=== PATIENT | female | born 1960 | race Caucasian/White ===

== ENCOUNTER → 2017-08-06 | Day surgery (SDC) | payer OTHER ==
[~2017-08-06] MED LIST: FENTANYL CITRATE/PF 100MCG/2 ML INJ ONE; FLUOXETINE HCL10 MG PO; GABAPENTIN800 MG PO; IBUPROFEN400 MG PO; LIDOCAINE HCL 2% LOCAL INJ 5 ML SDV VIAL INJ ONE; MIDAZOLAM HCL 2 MG/2 ML VIAL ONE; PERPHENAZINE8 MG PO; PROPOFOL IV EMULSION 10 MG/ML 50 ML VIAL ONE; TOPAMAX200 MG PO; TRAZODONE HCL100 MG PO; TYLENOL EXTRA500 MG PO
--- OUTSIDE RECORDS SUMMARY | 2017-08-06 09:30 | XMS REPORT | Clinical Summary ---
Author Author [facility] Address Unknown Phone Unavailable Care Team Providers Care Net Maker Name Role Phone Peewee Ling MD PCP Allergies No Known Allergies Current Medications Prescription Sig. Disp. Refills Start End Date Status Date topiramate (TOPAMAX) 200 Take 200 mg by mouth 2 Active MG tablet (two) times a day. Active Problems Not on file Encounters Date Type Specialty Care Team Description 07/02/2017 Emergency Emergency Medicine Deja Short MD Cyst of right ovary (Primary Dx); Right upper quadrant abdominal pain; Pelvic pain in female after 08/05/2016 Social History Tobacco Use Types Packs/Day Years Used Date Current Some Day Smoker Alcohol Use Drinks/Week oz/Week Comments No Sex Assigned at Date Recorded Not on file Last Filed Vital Signs Vital Sign Reading Time Taken Blood Pressure 128/60 07/02/2017 8:48 PM CDT Pulse 70 07/02/2017 8:48 PM CDT Temperature 36.7 C (98 F) 07/02/2017 8:48 PM CDT Respiratory Rate 18 07/02/2017 8:48 PM CDT Oxygen Saturation 99% 07/02/2017 8:48 PM CDT Inhaled Oxygen - - Concentration Weight - - Height 172.7 cm (5' 8") 07/02/2017 1:41 PM CDT Body Mass Index - - Plan of Treatment Health Maintenance Due Date Last Done Comments CERVICAL CANCER SCREENING 1979 BREAST CANCER SCREENING 02/29/2008 COLON CANCER SCREENING 02/29/2008 SHINGRIX VACCINE (#1) 02/29/2008 INFLUENZA VACCINE 10/02/2017 Results * US Pelvic Transabdominal (07/02/2017 7:01 PM) Specimen Performing Laboratory [facility] [address] [place] [address] Narrative EXAMINATION:US PELVIC TRANSVAGINAL, US PELVIC TRANSABDOMINAL CLINICAL HISTORY:Rt pelvic pain COMPARISON:None. TECHNIQUE:Transabdominal and endovaginal sonographic images of the pelvis were obtained. Grayscale, color Doppler, and spectral waveform analysis of the ovarian vessels was performed. FINDINGS: The uterus measures 6.0 x 3.2 x 4.1 cm. The endometrial stripe measures 0.4 cm. The right ovary measures 2.8 x 2.2 x 2.5 cm . Normal Doppler flow was present. The left ovary measures 2.0 x 1.3 x 1.2 cm.. Normal Doppler flow was present. TRANSVAGINAL IMAGING: The uterus does not demonstrate any masses. Endometrium is not enlarged. The right ovary has a 2.2 cm cyst present within the right ovary. Blood flow is present to the right ovary. The left ovary is unremarkable. There is blood flow present to the left ovary. IMPRESSION: 1. The uterus does not demonstrate any masses. 2. The endometrium is not enlarged. 3. There is a 2.2 cm cyst seen within the right ovary. 4. There is no evidence of any ovarian torsion. [facility]-[id number] Procedure Note [facility], Radiology Results Incoming - 07/02/2017 7:17 PM CDT EXAMINATION: US PELVIC TRANSVAGINAL, US PELVIC TRANSABDOMINAL CLINICAL HISTORY: Rt pelvic pain COMPARISON: None. TECHNIQUE:Transabdominal and endovaginal sonographic images of the pelvis were obtained. Grayscale, color Doppler, and spectral waveform analysis of the ovarian vessels was performed. FINDINGS: The uterus measures 6.0 x 3.2 x 4.1 cm. The endometrial stripe measures 0.4 cm. The right ovary measures 2.8 x 2.2 x 2.5 cm . Normal Doppler flow was present. The left ovary measures 2.0 x 1.3 x 1.2 cm.. Normal Doppler flow was present. TRANSVAGINAL IMAGING: The uterus does not demonstrate any masses. Endometrium is not enlarged. The right ovary has a 2.2 cm cyst present within the right ovary. Blood flow is present to the right ovary. The left ovary is unremarkable. There is blood flow present to the left ovary. IMPRESSION: 1. The uterus does not demonstrate any masses. 2. The endometrium is not enlarged. 3. There is a 2.2 cm cyst seen within the right ovary. 4. There is no evidence of any ovarian torsion. [facility]-[id number] * US Pelvic Transvaginal (07/02/2017 7:01 PM) Specimen Performing Laboratory [facility] [address] [place] [address] Narrative EXAMINATION:US PELVIC TRANSVAGINAL, US PELVIC TRANSABDOMINAL CLINICAL HISTORY:Rt pelvic pain COMPARISON:None. TECHNIQUE:Transabdominal and endovaginal sonographic images of the pelvis were obtained. Grayscale, color Doppler, and spectral waveform analysis of the ovarian vessels was performed. FINDINGS: The uterus measures 6.0 x 3.2 x 4.1 cm. The endometrial stripe measures 0.4 cm. The right ovary measures 2.8 x 2.2 x 2.5 cm . Normal Doppler flow was present. The left ovary measures 2.0 x 1.3 x 1.2 cm.. Normal Doppler flow was present. TRANSVAGINAL IMAGING: The uterus does not demonstrate any masses. Endometrium is not enlarged. The right ovary has a 2.2 cm cyst present within the right ovary. Blood flow is present to the right ovary. The left ovary is unremarkable. There is blood flow present to the left ovary. IMPRESSION: 1. The uterus does not demonstrate any masses. 2. The endometrium is not enlarged. 3. There is a 2.2 cm cyst seen within the right ovary. 4. There is no evidence of any ovarian torsion. [facility]-[id number] Procedure Note Interface, Radiology Results Incoming - 07/02/2017 7:17 PM CDT EXAMINATION: US PELVIC TRANSVAGINAL, US PELVIC TRANSABDOMINAL CLINICAL HISTORY: Rt pelvic pain COMPARISON: None. TECHNIQUE:Transabdominal and endovaginal sonographic images of the pelvis were obtained. Grayscale, color Doppler, and spectral waveform analysis of the ovarian vessels was performed. FINDINGS: The uterus measures 6.0 x 3.2 x 4.1 cm. The endometrial stripe measures 0.4 cm. The right ovary measures 2.8 x 2.2 x 2.5 cm . Normal Doppler flow was present. The left ovary measures 2.0 x 1.3 x 1.2 cm.. Normal Doppler flow was present. TRANSVAGINAL IMAGING: The uterus does not demonstrate any masses. Endometrium is not enlarged. The right ovary has a 2.2 cm cyst present within the right ovary. Blood flow is present to the right ovary. The left ovary is unremarkable. There is blood flow present to the left ovary. IMPRESSION: 1. The uterus does not demonstrate any masses. 2. The endometrium is not enlarged. 3. There is a 2.2 cm cyst seen within the right ovary. 4. There is no evidence of any ovarian torsion. [facility]-[id number] * US Gallbladder (07/02/2017 6:23 PM) Specimen Performing Laboratory [facility] [address] [place] [address] Narrative EXAMINATION:US GALLBLADDER CLINICAL HISTORY:Abdominal pain COMPARISON:None. FINDINGS: Gallbladder: The gallbladder is without evidence of calculi. The gallbladder wall is not thickened and there is no pericholecystic fluid. CBD:5 mm , within normal limits. Portal vein: The portal vein demonstrates normal hepatopetal flow. The portal vein measures 1.1 cm, within normal limits. IMPRESSION: Negative gallbladder ultrasound examination. [facility]-[id number] Procedure Note Interface, Radiology Results [facility] - 07/02/2017 6:29 PM CDT EXAMINATION: US GALLBLADDER CLINICAL HISTORY: Abdominal pain COMPARISON: None. FINDINGS: Gallbladder: The gallbladder is without evidence of calculi. The gallbladder wall is not thickened and there is no pericholecystic fluid. CBD: 5 mm , within normal limits. Portal vein: The portal vein demonstrates normal hepatopetal flow. The portal vein measures 1.1 cm, within normal limits. IMPRESSION: Negative gallbladder ultrasound examination. [id number] * CT Abdomen Pelvis W Contrast (07/02/2017 4:51 PM) Specimen Performing Laboratory [facility] [address] [place] [address] Narrative EXAMINATION:CT ABDOMEN PELVIS W CONTRAST CLINICAL HISTORY:Rt pelvic pain TECHNIQUE: Multiple axial CT images of the abdomen and pelvis are obtained with the use of intravenous contrast. Coronal and sagittal 3-D reconstructions are obtained. CT scans are performed using radiation dose reduction techniques.Technical factors are evaluated and adjusted to ensure appropriate moderation of exposure. Automated dose management technology is applied to adjust radiation exposure while achieving a diagnostic quality image. COMPARISON:None. FINDINGS: Visualized lower lung zones are clear. The gallbladder does not have any wall thickening. There is no pericholecystic fluid. The liver has multiple simple cysts present. The largest cyst measures 2.8 cm. A second cyst measures 1.1 cm. There are no solid masses seen within the liver. The CT appearance of the liver, spleen, adrenal glands and pancreas is unremarkable. The abdominal aorta has no aneurysmal dilatation. There is no retroperitoneal adenopathy. The kidneys do not have any solid renal mass or hydronephrosis. CT Pelvis: There is no evidence of any pneumoperitoneum. Stomach does not have any wall thickening. There is no bowel obstruction nor any dilated loops of bowel. Surgical clips are seen within the right lower quadrant. The uterus is present. There is a 1.9 cm right ovarian cyst present. The bladder does not demonstrate any masses. There is no inguinal hernia. The colon does not have any focal inflammatory change. There is no bowel wall thickening. Small bowel is not dilated. IMPRESSION: 1. There is a 1.9 cm right ovarian cyst present. 2. There is no bowel obstruction nor any dilated loops of bowel. 3. The colon does not have any focal inflammatory change. 4. There is no acute abnormality. [facility]-[id number] Procedure Note Interface, Radiology Results Incoming - 07/02/2017 5:22 PM CDT EXAMINATION: CT ABDOMEN PELVIS W CONTRAST CLINICAL HISTORY: Rt pelvic pain TECHNIQUE: Multiple axial CT images of the abdomen and pelvis are obtained with the use of intravenous contrast. Coronal and sagittal 3-D reconstructions are obtained. CT scans are performed using radiation dose reduction techniques. Technical factors are evaluated and adjusted to ensure appropriate moderation of exposure. Automated dose management technology is applied to adjust radiation exposure while achieving a diagnostic quality image. COMPARISON: None. FINDINGS: Visualized lower lung zones are clear. The gallbladder does not have any wall thickening. There is no pericholecystic fluid. The liver has multiple simple cysts present. The largest cyst measures 2.8 cm. A second cyst measures 1.1 cm. There are no solid masses seen within the liver. The CT appearance of the liver, spleen, adrenal glands and pancreas is unremarkable. The abdominal aorta has no aneurysmal dilatation. There is no retroperitoneal adenopathy. The kidneys do not have any solid renal mass or hydronephrosis. CT Pelvis: There is no evidence of any pneumoperitoneum. Stomach does not have any wall thickening. There is no bowel obstruction nor any dilated loops of bowel. Surgical clips are seen within the right lower quadrant. The uterus is present. There is a 1.9 cm right ovarian cyst present. The bladder does not demonstrate any masses. There is no inguinal hernia. The colon does not have any focal inflammatory change. There is no bowel wall thickening. Small bowel is not dilated. IMPRESSION: 1. There is a 1.9 cm right ovarian cyst present. 2. There is no bowel obstruction nor any dilated loops of bowel. 3. The colon does not have any focal inflammatory change. 4. There is no acute abnormality. [facility]-[id number] * Estimated GFR (07/02/2017 3:28 PM) Component Value Ref Range GFR Non Af Amer 86 mL/min/1.73 m2 GFR Af Amer >90 mL/min/1.73 m2 Comment: Chronic kidney disease: <60 mL/min/1.73m2 Kidney failure: <15 mL/min/1.73m2 The estimated GFR is calculated from the IDMS-traceable Modification of Diet in Renal Disease Equation. The accuracy of the calculation is poor when the creatinine is normal. Calculated values >90 mL/min/1.73m2 are not reported. This equation has not been validated in children (<18 years), women, the elderly (>70 years), or ethnic groups other than Caucasians and Americans. Specimen Performing Laboratory Plasma specimen [facility] [place] [address] * Urinalysis (07/02/2017 3:28 PM) Component Value Ref Range Glucose, UA Negative Negative Bilirubin, UA Negative Negative Ketones, UA Negative Negative Specific gravity, UA 1.010 1.001 - 1.035 Blood, UA Negative Negative pH, UA 5.0 5.0 - 8.5 Protein, UA Negative Negative Urobilinogen, UA <2.0 <2.0 Nitrite, UA Negative Negative Leukocyte esterase, UA Negative Negative Color, UA Bright Yellow Appearance, UA Clear Specimen Performing Laboratory Urine [facility] [place] [address] * Gram stain (07/02/2017 3:28 PM) Component Value Ref Range Gram stain result No WBC's or organisms seen. Comment: Specimen Information Specimen Source: Urine Specimen Site: Urine, clean catch Specimen Performing Laboratory Urine - Urine, clean [facility] catch [address] [facility] [place] [address] * CBC with platelet and differential (07/02/2017 3:28 PM) Component Value Ref Range WBC 5.39 4.50 - 11.00 k/uL RBC 3.88 (L) 4.20 - 5.50 m/uL HGB 12.6 12.0 - 16.0 g/dL HCT 36.7 (L) 37.0 - 47.0 % MCV 94.6 82.0 - 100.0 fL MCH 32.5 27.0 - 34.0 pg MCHC 34.3 31.0 - 37.0 g/dL RDW - SD 41.9 37.0 - 55.0 fL MPV 10.3 8.8 - 13.2 fL Platelet count 174 150 - 400 k/uL Neutrophils 67.8 39.0 - 69.0 % Lymphocytes 23.9 (L) 25.0 - 45.0 % Monocytes 7.2 0.0 - 10.0 % Eosinophils 0.7 0.0 - 5.0 % Basophils 0.4 0.0 - 1.0 % Specimen Performing Laboratory Blood [facility] [place] [address] * Urine culture (07/02/2017 3:28 PM) Component Value Ref Range Urine culture isolate Mixed Gram positive carolann 10-3 cfu/ml (A) Comment: Specimen Information Specimen Source: Urine Specimen Site: Urine, clean catch Urine culture isolate Streptococcus group B 10-2 cfu/ml (A) Specimen Performing Laboratory Urine - Urine, clean [facility] DE[facility]MENT OF PATHOLOGY [facility] GENOMIC MEDICINE catch [address] [place] [address] * Lipase level (07/02/2017 3:28 PM) Component Value Ref Range Lipase 30 13 - 60 U/L Specimen Performing Laboratory Serum [facility] [place] [address] * Comprehensive metabolic panel (07/02/2017 3:28 PM) Component Value Ref Range Sodium 144Comment: Na performed with I-STAT. 135 - 148 mEq/L Potassium 3.5 3.5 - 5.0 mEq/L Chloride 111 (H) 99 - 109 mEq/L CO2 23 (L) 24 - 31 mEq/L Anion gap 10 7 - 15 mEq/L Comment: Starting from June , anion gap calculation no longer incorporates potassium. Please note the change. BUN 7 (L) 8 - 24 mg/dL Creatinine 0.7 0.5 - 1.5 mg/dL Glucose 106 (H) 65 - 99 mg/dL Calcium 9.4 8.6 - 10.6 mg/dL Protein 7.5 6.3 - 8.2 g/dL Albumin 4.7 3.5 - 5.0 g/dL A/G ratio 1.7 0.7 - 3.8 Alkaline phosphatase 113 30 - 115 U/L AST 17 15 - 46 U/L ALT 13 10 - 55 U/L Total bilirubin 0.2 0.2 - 1.2 mg/dL Specimen Performing Laboratory Plasma specimen [facility], [place] [id number] [facility] [place] [address] after 08/05/2016 Insurance Payer Benefit Subscriber ID Type Phone Address Plan / Group [employer] [facility] xxxxxxxxxxxx Exchange EXCHANGE [employer] Home: [id number] [place] [phone]
== END | disposition home or self-care (01) ==
LOC: OR 09:23
PROVIDERS: ATTEND Internal Medicine Gastroenterology
DX: K29.50 Unspecified chronic gastritis without bleeding (principal); D12.4 Benign neoplasm of descending colon; B37.81 Candidal esophagitis; K44.9 Diaphragmatic hernia without obstruction or gangrene; K64.8 Other hemorrhoids; J44.9 Chronic obstructive pulmonary disease, unspecified; I95.9 Hypotension, unspecified; M19.90 Unspecified osteoarthritis, unspecified site; H91.90 Unspecified hearing loss, unspecified ear; F31.9 Bipolar disorder, unspecified; F41.9 Anxiety disorder, unspecified; F17.210 Nicotine dependence, cigarettes, uncomplicated
CPT/HCPCS: 43239; 45384; 93005; J2001; J2250; 45378